=== PATIENT | male | born 1980 | race Two or more races ===

== ENCOUNTER 2023-01-13 09:31 | Emergency (ER) | payer SELFPAY ==
[2023-01-13 09:39] VITALS: BP 149/98; PULSE 82; RESP 18; TEMP 99.5; BMI 23.3
[2023-01-13] MEDS ORDERED: SODIUM CHLORIDE 0.9% 500 ML INFUS.BAG IV ONE (10:18)
[2023-01-13] MEDS ORDERED: ACETAMINOPHEN 500 MG TABLET (FP) PO ONE (10:51)
[2023-01-13] MEDS ORDERED: ACETAMINOPHEN 500 MG TABLET (FP) ONE (10:53)
[2023-01-13 10:57] LABS: HEMATOCRIT 41.3 % (35.4-49); HEMOGLOBIN 13.8 G/dL (11.7-16.9); MCHC 33.3 g/dl (32.0-35.9); MEAN CELL VOLUME 93.1 fl (80-96); MEAN PLT VOLUME 8.9 fl (7.5-11.1); PLATELET COUNT 115.5 10^3/uL (134-434); RBC 4.44 10^6/uL (4.00-5.60); RDW 14.1 % (11.9-15.9); WHITE BLOOD COUNT 3.6 10^3/uL (4.0-10.8)
[2023-01-13 10:58] LABS: ALBUMIN 4.7 g/dl (3.4-5.0); BILIRUBIN,TOTAL 1.9 mg/dl (0.2-1); BLOOD UREA NITROGEN 12.7 mg/dl (7-18); CREATININE 0.8 mg/dl (0.6-1.3); POTASSIUM 3.5 mmol/L (3.5-5.1); SGOT/AST 46.9 U/L (15-37); SGPT/ALT 29.4 U/L (7-52); TOT PROT 7.1 g/dl (6.4-8.2)
[2023-01-13 11:06] LABS: PLATELET ESTIMATE ADEQUATE
[2023-01-13 13:05] LABS: PHENCYCLIDINE,URINE NEGATIVE (NEGATIVE); URINE BENZODIAZEPINES NEGATIVE (NEGATIVE)
[2023-01-13 13:06] LABS: METHADONE, UR NEGATIVE (NEGATIVE); OPIATES, URI NEGATIVE (NEGATIVE); URINE AMPHETAMINES NEGATIVE (NEGATIVE); URINE BARBITURATES NEGATIVE (NEGATIVE)
[2023-01-13 13:07] LABS: COCAINE, UR NEGATIVE (NEGATIVE)
== END 2023-01-13 13:23 | disposition home or self-care (01) ==
LOC: FER 09:31
DX: F10.930 Alcohol use, unspecified with withdrawal, uncomplicated (principal)
CPT/HCPCS: 0241U-QW; 36415; 71045-TC-FY; 80053; 80307; 81003; 83735; 84443; 84484; 85027; 87086; 93005; 99285-25